=== PATIENT | male | born 1950 | race Caucasian/White ===

== ENCOUNTER 2017-04-24 19:06 | Emergency (ER) | payer MEDICARE ==
[~2017-04-24] VITALS: Ht 165.1 cm; Wt 65.0 kg
[2017-04-24 19:15] VITALS: BP 191/91; PULSE 105; RESP 20; O2SAT 98
[2017-04-24 19:20] VITALS: RESP 21; O2SAT 99
[2017-04-24] MEDS ORDERED: FAMOTIDINE INJ 20 MG in SODIUM CHLORIDE 0.9% INJ 98 ML IV ONE (19:30)
[2017-04-24] MEDS ORDERED: methylPREDNISolone SOD SUCC 125 MG/2 ML VIAL IV PUSH ONE (19:30)
[2017-04-24] MEDS ORDERED: SODIUM CHLORID 0.9% 500 ML INJ 500 ML IV ONE ×2 (19:30→20:45)
--- NOTE | 2017-04-24 19:31 | PD ---
HPI Chief Complaint: Allergic/Adverse Reaction Time Seen by Provider: 19:27 Travel History International Travel<30 days: No Contact w/Intl Traveler<30days: No Traveled to known affect area: No History of Present Illness HPI The patient is a 67 year old male who presents to the [facility] emergency department with a history of generalized skin itching and redness that began 10 minutes after taking Aleve for the first time in a long time at 6 PM today. The patient reports that he took it for back pain. He reports that he's had back pain over the last week. He cannot recall any injury/trauma/fall that precipitated the back pain he reports that it began on the right now has moved across his low back and also involves the left. The patient reports that when he began to have a generalized body itching and redness he felt like he had to go lie down. He denies feeling lightheaded or having generalized weakness. He reports that he has difficulty putting and towards why he felt like he must lay down. He reports that he thought he may fall if he did not lie down. He denies having any associated tongue swelling or throat swelling. He denies having any chest pain, chest pressure, or shortness of breath. He denies having any abdominal cramping or diarrhea. He denies ever having any medication allergy previously. He denies having any food allergies. The patient denies having any dysuria, urinary frequency, or urinary urgency. On review of systems otherwise he denies any recent fevers, worsening cough or congestion, neck pain, abdominal pain, vomiting, diarrhea, or neurologic symptoms. [facility] Past Medical History Narrative Medical The patient's past medical history is reportedly none. Past Surgical History Narrative Surgical The patient's past surgical history is reportedly none. Social History Alcohol Use: Yes (sixpack of beer per day) Tobacco Use: Yes (one pack per day) Substance Use: Yes (occasional marijuana) Allergies-Medications (Allergen,Severity, Reaction): Coded Allergies: No Known Allergies (Unverified , 04/24/17) Reported Meds & Prescriptions Reported Meds & Active Scripts Active Epipen 2-Shaym Inj (Epinephrine) 0.3 Mg/0.3 Ml Pfpen 0.3 Mg IM ONCE PRN Narrative Medication He denies taking any prescribed medications. Review of Systems Except as stated in HPI: all other systems reviewed are Neg General / Constitutional: No: Fever Eyes: No: Visual changes HENT: No: Headaches Cardiovascular: No: Chest Pain or Discomfort Respiratory: No: Shortness of Breath Gastrointestinal: No: Nausea, Vomiting, Diarrhea, Abdominal Pain, Changes in Bowel Habits, Indigestion, Loss of Appetite Genitourinary: No: Dysuria Musculoskeletal: No: Pain Skin: Positive Rash, Positive Itching, Positive Change in Pigmentation (skin redness and blotching) Neurologic: No: Weakness, Focal Abnormalities, Change in Mentation, Slurred Speech, Sensory Disturbance Psychiatric: No: Depression Endocrine: No: Polydipsia Hematologic/Lymphatic: No: Easy Bruising Physical Exam Narrative General: The patient is well-developed well-nourished male in no acute distress. Head and Neck exam: Head is normocephalic atraumatic. Eyes: EOMI, pupils are equal round and reactive to light. Nose: Midline septum with pink mucous membranes Mouth: Dentition unremarkable. Moist mucus membranes. Posterior oropharynx is not erythematous. No tonsillar hypertrophy. Uvula midline. Airway patent. Neck: No palpable lymphadenopathy. No nuchal rigidity. No thyromegaly. Cardiovascular: Sinus tachycardia in the low 100 without murmurs, gallops, or rubs. No pulse deficit to the extremities on simultaneous auscultation and palpation of his radial artery. Lungs: Clear to auscultation bilaterally. No wheezes, rhonchi, or rales. Abdomen: Soft, without tenderness to palpation in all 4 quadrants of the abdomen. No guarding, rebound, or rigidity. Normal bowel sounds are audible. No tenderness on palpation of McBurney's point. Extremities: No clubbing, cyanosis, or edema. 2+ pulses in all 4 extremities. No calf tenderness on palpation. Back: No spinous process tenderness to palpation. No costovertebral angle tenderness to palpation. Neurologic Exam: Grossly nonfocal. Skin Exam: The patient's skin is warm and dry. The patient had splotchy areas of redness involving his extremities and thorax. He reports that the itching has resolved. Data Data Last Documented VS Vital Signs Date Time Temp Pulse Resp B/P (MAP) Pulse Ox O2 Delivery O2 Flow Rate FiO2 04/24/17 20:19 98.1 04/24/17 19:20 102 21 99 Room Air 04/24/17 19:15 191/91 (124) Orders Orders Electrocardiogram (04/24/17 19:27) Complete Blood Count With Diff (04/24/17 19:27) Comprehensive Metabolic Panel (04/24/17 19:27) Creatine Kinase (Cpk) (04/24/17 19:27) Ckmb (Isoenzyme) Profile (04/24/17 19:27) Troponin I (04/24/17 19:27) B-Type Natriuretic Peptide (04/24/17 19:27) Prothrombin Time / Inr (Pt) (04/24/17 19:27) Act Partial Throm Time (Ptt) (04/24/17 19:27) Blood Culture (04/24/17 19:) Lipase (04/24/17 19:27) Urinalysis - C+S If Indicated (04/24/17 19:27) Magnesium (Mg) (04/24/17 19:27) Thyroid Stimulating Hormone (04/24/17 19:27) Chest, Single Ap (04/24/17 19:27) Iv Access Insert/Monitor (04/24/17 19:27) Ecg Monitoring (04/24/17 19:27) Oximetry (04/24/17 19:27) Lactic Acid Sepsis Protocol (04/24/17 19:27) Sodium Chlorid 0.9% 500 Ml Inj (Ns 500 M (04/24/17 19:30) Methylprednisolone So Succ Inj (Solumedr (04/24/17 19:30) Famotidine Inj (Pepcid Inj) (04/24/17 19:30) Famotidine Inj (Pepcid Inj) (04/24/17 19:45) Sodium Chlorid 0.9% 500 Ml Inj (Ns 500 M (04/24/17 20:45) Labs Laboratory Tests Test 04/24/17 19:20 04/24/17 19:40 04/24/17 21:22 04/24/17 22:01 White Blood Count 9.3 TH/MM3 Red Blood Count 5.17 MIL/MM3 Hemoglobin 17.9 GM/DL Hematocrit 53.0 % Mean Corpuscular Volume 102.5 FL Mean Corpuscular Hemoglobin 34.6 PG Mean Corpuscular Hemoglobin Concent 33.7 % Red Cell Distribution Width 13.4 % Platelet Count 136 TH/MM3 Mean Platelet Volume 8.1 FL Neutrophils (%) (Auto) 70.7 % Lymphocytes (%) (Auto) 23.1 % Monocytes (%) (Auto) 5.3 % Eosinophils (%) (Auto) 0.8 % Basophils (%) (Auto) 0.1 % Neutrophils # (Auto) 6.6 TH/MM3 Lymphocytes # (Auto) 2.2 TH/MM3 Monocytes # (Auto) 0.5 TH/MM3 Eosinophils # (Auto) 0.1 TH/MM3 Basophils # (Auto) 0.0 TH/MM3 CBC Comment DIFF FINAL Differential Comment Prothrombin Time 11.3 SEC Prothromb Time International Ratio 1.0 RATIO Activated Partial Thromboplast Time 24.2 SEC Blood Urea Nitrogen 9 MG/DL Creatinine 1.07 MG/DL Random Glucose 127 MG/DL Total Protein 6.9 GM/DL Albumin 3.7 GM/DL Calcium Level 8.2 MG/DL Magnesium Level 1.9 MG/DL Alkaline Phosphatase 60 U/L Aspartate Amino Transf (AST/SGOT) 19 U/L Alanine Aminotransferase (ALT/SGPT) 14 U/L Total Bilirubin 0.6 MG/DL Sodium Level 137 MEQ/L Potassium Level 3.7 MEQ/L Chloride Level 104 MEQ/L Carbon Dioxide Level 22.4 MEQ/L Anion Gap 11 MEQ/L Estimat Glomerular Filtration Rate 69 ML/MIN Total Creatine Kinase 58 U/L Troponin I LESS THAN 0.02 NG/ML B-Type Natriuretic Peptide 34 PG/ML Lipase 133 U/L Thyroid Stimulating Hormone 3rd Gen 2.990 uIU/ML Lactic Acid Level 2.4 mmol/L 1.2 mmol/L Urine Color YELLOW Urine Turbidity CLEAR Urine pH 6.5 Urine Specific [place] 1.016 Urine Protein TRACE mg/dL Urine Glucose (UA) NEG mg/dL Urine Ketones NEG mg/dL Urine Occult Blood NEG Urine Nitrite NEG Urine Bilirubin NEG Urine Urobilinogen 2.0 MG/DL Urine Leukocyte Esterase NEG Urine RBC 3 /hpf Urine WBC 2 /hpf Urine Squamous Epithelial Cells <1 /hpf Urine Hyaline Casts 13 /lpf Urine Mucus FEW /lpf Microscopic Urinalysis Comment CULT NOT INDICATED MDM Medical Decision Making Medical Screen Exam Complete: Yes Emergency Medical Condition: Yes Medical Record Reviewed: Yes Differential Diagnosis Allergic reaction, versus contact dermatitis, versus anaphylaxis Narrative Course During the course of the patients emergency department visit, the patients history, examination, and differential diagnosis were reviewed with the patient. The patient had IV access obtained and blood work sent for analysis. The patient was placed on a electronic device monitor with oximetry and blood pressure monitoring. The patient was brought in by ambulance services. The patient was given normal saline at 250 mL bolus 1 prior to arrival along with Benadryl 50 mg IV. The patient had an ECG done on arrival that shows a sinus rhythm with a short NE interval, heart rate of 81, QRS duration is 93 ms, QTC [address] segment elevation is noted. The patient was initially provided famotidine 20 mg IV, Solu-Medrol 125 mg IV. The patient was started on normal saline 500 mL bolus. On repeat examination the patient was reportedly feeling improved. The skin erythema had resolved. The patients laboratory studies were reviewed and remarkable for white count is 9.3, hemoglobin 17.9, platelets 136 with 70.7 neutrophils. CMP is remarkable for glucose of 127, calcium 8.2, CPK 58, troponin I less than 0.02, BNP 34, repeat lactate was lipase 133, TSH 2.99 the patient had a lactic acid level that was 2.4, repeated and it was 1.2. PT 11.3, PTT 24.2. Urinalysis is unremarkable. Radiology studies were reviewed and remarkable for a chest x-ray that shows no acute cardiopulmonary disease. The patient is instructed to follow-up with a primary care physician for reexamination in the next 2 days. The patient was notified that his blood pressure was elevated in the emergency department and he will need follow-up with a primary care physician to have his rechecked. In the meantime, the patient is instructed to avoid Aleve. The patient was given a prescription for an EpiPen in case he has an allergic reaction again in the future. He is given a prescription for Benadryl, Medrol Dosepak taper, famotidine, and for his back pain and Flexeril. The patient is resting comfortably and feels better, is alert and in no distress. The patients results and examination findings were discussed with the patient. The repeat examination is unremarkable and benign. The history, exam, diagnostic testing, and current condition do not suggest any significant pathology to warrant further testing, continued ED treatment, admission, or surgical evaluation at this point. The vital signs have been stable. The patient does not have uncontrollable pain, intractable vomiting, or other significant symptoms. The patient's condition is stable and appropriate for discharge. The patient will pursue further outpatient evaluation with a primary care physician or other designated or consulting physician as indicated in the discharge instructions. The patient expressed understanding and was agreeable with this plan. Diagnosis Primary Impression: Allergic reaction caused by a drug Qualified Codes: T78.40XA - Allergy, unspecified, initial encounter Additional Impression: Back pain Qualified Codes: M54.5 - Low back pain Referrals: Primary Care Physician Patient Instructions: Back Pain (ED), General Allergic Reaction (ED), General Instructions Additional Instructions: The patient is instructed to follow-up with a primary care physician for reexamination in the next 2 days. The patient was notified that his blood pressure was elevated in the emergency department and he will need follow-up with a primary care physician to have his rechecked. In the meantime, the patient is instructed to avoid Aleve. The patient was given a prescription for an EpiPen in case he has an allergic reaction again in the future. He is given a prescription for Benadryl, Medrol Dosepak taper, famotidine, and for his back pain and Flexeril. Med/Other Pt SpecificInfo: Prescription(s) given Scripts Famotidine (Famotidine) 20 Mg Tab 20 MG PO BID, #14 TAB 0 Refills Prov: Annie Wilcox MD 04/24/17 Methylprednisolone Dosepak (Medrol Dosepak) 4 Mg Dspk 4 MG PO DIRECTED, #1 DSPK 0 Refills Per Pharmacist direction Prov: Annie Wilcox MD 04/24/17 Diphenhydramine (Diphenhydramine) 25 Mg Cap 25 MG PO Q6H, #12 CAP 0 Refills Prov: Annie Wilcox MD 04/24/17 Cyclobenzaprine (Flexeril) 5 Mg Tab 5 MG PO TID Y for SPASM, #12 TAB 0 Refills Prov: Annie Wilcox MD 04/24/17 Epinephrine Inj (Epipen 2-Shyam Inj) 0.3 Mg/0.3 Ml Pfpen 0.3 MG IM ONCE Y for ALLERGIC REACTION, #1 PACK 0 Refills Prov: Annie Wilcox MD 04/24/17 Disposition: 01 DISCHARGE HOME Condition: Stable Annie Wilcox MD Apr 24, 2017 19:31
[2017-04-24] MEDS ORDERED: EPIP0.3I IM (19:40)
[2017-04-24] MEDS ORDERED: FAMOTIDINE 20 MG/2 ML VIAL IV PUSH SCH (19:45)
--- NOTE | 2017-04-24 19:55 | RADRPT ---
EXAM DATE/TIME: 04/24/2017 19:36 [facility] COMPARISON: No previous studies available for comparison. INDICATIONS : Cough MEDICAL HISTORY : None. SURGICAL HISTORY : None. ENCOUNTER: Initial ACUITY: 1 day PAIN SCORE: 0/10 LOCATION: chest FINDINGS: Portable AP view of the chest demonstrates a normal-sized cardiac silhouette. No effusion, consolidat ion, or pneumothorax is visualized. The bones and soft tissues demonstrate no acute abnormality. CONCLUSION: No acute cardiopulmonary abnormality is identified. Brian Cope MD on April 24, 2017 at 19:53 Board Certified Radiologist. This report was verified electronically.
[2017-04-24 20:01] LABS: APTT (PATIENT) 24.2 SEC (24.3-30.1); PROTHROMBIN TIME - PATIENT 11.3 SEC (9.8-11.6)
[2017-04-24 20:15] LABS: ALT (GPT) 14 U/L (12-78)
[2017-04-24 20:17] LABS: AUTOMATED NEUTROPHIL # 6.6 TH/MM3 (1.8-7.7); BASOPHIL % 0.1 % (0.0-2.0); EOSINOPHIL # 0.1 TH/MM3 (0-0.4); EOSINOPHIL % 0.8 % (0.0-4.0); HEMO FLAGS DIFF FINAL; LYMPH % 23.1 % (9.0-44.0); LYMPHOCYTE # 2.2 TH/MM3 (1.0-4.8); MEAN CELL VOLUME 102.5 FL (80.0-100.0); MEAN CORPUSCULAR HEMOGLOBIN 34.6 PG (27.0-34.0); MEAN CORPUSCULAR HGB CONC 33.7 % (32.0-36.0); MONO % 5.3 % (0.0-8.0); NEUT % 70.7 % (16.0-70.0); PLATELET COUNT 136 TH/MM3 (150-450); RED BLOOD COUNT 5.17 MIL/MM3 (4.50-5.90); RED CELL DISTRIBUTION WIDTH 13.4 % (11.6-17.2); WHITE BLOOD COUNT 9.3 TH/MM3 (4.0-11.0)
[2017-04-24 20:19] VITALS: TEMP 98.1
[2017-04-24 20:27] LABS: ALKALINE PHOSPHATASE 60 U/L (45-117); ANION GAP 11 MEQ/L (5-15); AST (GOT) 19 U/L (15-37); BICARBONATE 22.4 MEQ/L (21.0-32.0); BLOOD UREA NITROGEN 9 MG/DL (7-18); CHLORIDE 104 MEQ/L (98-107); GLOMERULAR FILTRATION RATE 69 ML/MIN (>89); MAGNESIUM 1.9 MG/DL (1.5-2.5); POTASSIUM 3.7 MEQ/L (3.5-5.1); SODIUM (NA) 137 MEQ/L (136-145); TOTAL BILIRUBIN ADULT 0.6 MG/DL (0.2-1.0)
[2017-04-24 20:39] LABS: CREATINE KINASE 58 U/L (39-308)
[2017-04-24 21:40] LABS: BLOOD, URINE NEG (NEG); COMMENT (UR) CULT NOT INDICATED; CULTURE IF INDICATED CULT NOT INDICATED; GLUCOSE,URINE NEG (NEG); HYALINE CAST, URINE 13 /lpf (RARE); KETONE, URINE NEG (NEG); MUCUS URINE FEW /lpf (OCC); NITRITE,URINE NEG (NEG); PH, URINE 6.5 (5.0-8.5); SQUAMOUS EPITHELIAL CELL URINE <1 /hpf (0-5); URINE COLOR YELLOW (YELLW/STRAW)
[2017-04-24 21:45] LABS: LACTIC ACID GHOST NOT REPORTABLE
[2017-04-24 23:00] VITALS: BP 170/89; PULSE 88; RESP 17; O2SAT 98
[2017-04-24] MEDS ORDERED: DIPH25CA PO (23:25)
[2017-04-24] MEDS ORDERED: FAMO20TA2 PO (23:25)
[2017-04-24] MEDS ORDERED: CYCL5TAB PO (23:25)
[2017-04-24] MEDS ORDERED: MEDR4PAK PO (23:25)
--- NOTE | 2017-04-25 11:46 | EKG ---
Date Performed: 04/24/2017 Time Performed: 19:36:59 PTAGE: 67 years EKG: Sinus rhythm WITH SHORT MD INTERVAL MODERATE ST DEPRESSION Cannot exclude ischemia ABNORMAL ECG NO PREVIOUS TRACING DOCTOR: Baron Wilcox Interpretating Date/Time 04/25/2017 11:44:45
== END 2017-04-24 23:45 | disposition home or self-care (01) ==
LOC: NEPC 19:06
DX: T50.905A Adverse effect of unspecified drugs, medicaments and biological substances, initial encounter (principal); M54.5 Low back pain; R94.31 Abnormal electrocardiogram [ECG] [EKG]; Z72.0 Tobacco use
CPT/HCPCS: 71010; 80053; 81001; 82550; 83605; 83690; 83735; 83880; 84443; 84484; 85025; 85610; 85730; 87040; 93005; 96361; 96374; 96375; 99284; J2930; J7040